=== PATIENT | female | born 1970 | race Caucasian/White ===

== ENCOUNTER 2016-08-21 08:03 | Emergency (ER) | payer BC, OTHER ==
[~2016-08-21] VITALS: Ht 157.5 cm; Wt 83.9 kg
[2016-08-21 08:20] VITALS: BP 151/95
[2016-08-21] MEDS ORDERED: KETOROLAC TROMETH 60MG/2ML VIAL IM ONE (09:30)
== END 2016-08-21 09:54 | disposition home or self-care (01) ==
LOC: ER 08:03
DX: S16.1XXA Strain of muscle, fascia and tendon at neck level, initial encounter (principal); S86.919A Strain of unspecified muscle(s) and tendon(s) at lower leg level, unspecified leg, initial encounter; M51.37 Other intervertebral disc degeneration, lumbosacral region; M50.30 Other cervical disc degeneration, unspecified cervical region; V49.49XA Driver injured in collision with other motor vehicles in traffic accident, initial encounter; Y93.89 Activity, other specified; Y99.8 Other external cause status; Y92.410 Unspecified street and highway as the place of occurrence of the external cause
CPT/HCPCS: 72040; 72220; 96372; 99284; J1885

== ENCOUNTER 2018-04-13 13:43 | Emergency (ER) | payer BC ==
[~2018-04-13] VITALS: Ht 157.5 cm; Wt 84.8 kg
[2018-04-13 14:28] VITALS: BP 127/79
== END 2018-04-13 16:18 | disposition home or self-care (01) ==
LOC: ER 13:43
DX: S86.912A Strain of unspecified muscle(s) and tendon(s) at lower leg level, left leg, initial encounter (principal); I10 Essential (primary) hypertension; X58.XXXA Exposure to other specified factors, initial encounter; Y93.89 Activity, other specified; Y99.8 Other external cause status; Y92.89 Other specified places as the place of occurrence of the external cause
CPT/HCPCS: 93971

== ENCOUNTER 2019-02-23 08:25 | Emergency (ER) | payer BC ==
[~2019-02-23] VITALS: Ht 157.5 cm; Wt 85.7 kg
[2019-02-23 09:10] LABS: Basophils # (auto) 0 uL; Basophils % (auto) 0.4 % (0.0-2.0); Eosinophils # (auto) 0.1 uL; Eosinophils % (auto) 1.2 % (0.0-7.0); Hematocrit 41.7 % (36.0-46.0); Hemoglobin 14.3 g/dL (12.2-16.2); Lymphocytes # (auto) 1.4 uL; Lymphocytes % (auto) 18.8 % (10.0-50.0); Mean Corpuscular Hemoglobin 32.1 pg (28.0-32.0); Mean Corpuscular Hgb Conc. 34.3 g/dL (32.0-36.0); Mean Corpuscular Volume 93.7 fL (80.0-100.0); Monocytes # (auto) 0.2 uL; Monocytes % (auto) 3.3 % (0.0-12.0); Neutrophils # (auto) 5.7 uL; Neutrophils % (auto) 76.3 % (37.0-80.0); Nucleated Red Blood Cells % 0.1 %; Platelet Count (auto) 327 10^3/uL (140-450); Red Blood Cells 4.45 10^6/uL (4.0-5.20); Red Cell Distribution Width 13.8 % (11.8-14.3); White Blood Cell 7.4 10^3/uL (4.4-10.8)
[2019-02-23 09:26] LABS: INR < 0.93 (0.9-1.15); Partial Thromboplastin Time 25.6 sec (23.64-32.05)
[2019-02-23 09:31] LABS: Albumin 3.8 g/dL (3.4-5.0); Anion Gap 4 (5-15); Aspartate Aminotransferase 21 U/L (15-37); BUN/Creatinine Ratio 17.3; Blood Urea Nitrogen 14 mg/dL (7-18); Calcium 8.8 mg/dL (8.5-10.1); Carbon Dioxide 26 mmol/L (21-32); Chloride 110 mmol/L (98-107); GFR African American 96 mL/min; GFR Non-African American 80 mL/min; Glucose 90 mg/dL (74-106); Potassium 4.2 mmol/L (3.5-5.1); Sodium 140 mmol/L (136-145)
[2019-02-23 09:36] LABS: Alanine Aminotransferase 36 U/L (13-56); Alkaline Phosphatase 135 U/L (45-117); Bilirubin, Total 0.3 mg/dL (0.2-1.0); Total Protein 7.3 g/dL (6.4-8.2)
[2019-02-23 09:50] LABS: Urine Bacteria NONE SEEN /hpf (None Seen); Urine Blood Negative /uL (Negative); Urine Specific Gravity 1.009 (1.001-1.035); Urine WBC 1 /hpf (0 - 5)
[2019-02-23] MEDS ORDERED: ASPirin 81 mg TAB PO ONE (10:15)
[2019-02-23 12:42] VITALS: BP 137/85
== END 2019-02-23 12:44 | disposition home or self-care (01) ==
LOC: ER 08:26
DX: F41.9 Anxiety disorder, unspecified (principal); R07.89 Other chest pain; I10 Essential (primary) hypertension
CPT/HCPCS: 36415; 71046; 80053; 81001; 84484; 85025; 85610; 85730; 93005; 94761

== ENCOUNTER 2022-12-10 09:36 | Emergency (ER) | payer BC, OTHER ==
[~2022-12-10] VITALS: Ht 157.5 cm; Wt 81.9 kg
[2022-12-10 10:28] VITALS: BP 139/73
[2022-12-10] MEDS ORDERED: ACETAMINOPHEN 500 MG TAB PO ONE (11:00)
[2022-12-10] MEDS ORDERED: METH-1182 PO (11:54)
[2022-12-10] MEDS ORDERED: IBUP-1456 PO (11:54)
== END 2022-12-10 11:56 | disposition home or self-care (01) ==
LOC: ER 09:36
DX: S16.1XXA Strain of muscle, fascia and tendon at neck level, initial encounter (principal); S00.83XA Contusion of other part of head, initial encounter; I10 Essential (primary) hypertension; V49.9XXA Car occupant (driver) (passenger) injured in unspecified traffic accident, initial encounter; Y93.89 Activity, other specified; Y92.410 Unspecified street and highway as the place of occurrence of the external cause; Y99.8 Other external cause status
CPT/HCPCS: 72040

== ENCOUNTER 2023-07-04 10:08 | Emergency (ER) | payer BC, OTHER ==
[~2023-07-04] VITALS: Ht 157.5 cm; Wt 81.9 kg
[~2023-07-04 10:08] MED LIST: IBUP-1456 PO; METH-1182 PO
[2023-07-04 11:15] VITALS: RESP 18; O2SAT 97
[2023-07-04] MEDS ORDERED: KETOROLAC TROMETH 60MG/2ML VIAL IM ONE (11:30)
[2023-07-04 11:46] VITALS: BP 151/94; PULSE 70; RESP 16; TEMP 97.4; O2SAT 97
[2023-07-04] MEDS ORDERED: METH-1182 PO (12:15)
== END 2023-07-04 12:21 | disposition home or self-care (01) ==
LOC: ER 10:08
DX: M54.41 Lumbago with sciatica, right side (principal); I10 Essential (primary) hypertension; Z98.890 Other specified postprocedural states; Z79.899 Other long term (current) drug therapy
CPT/HCPCS: 96372; 99283; J1885

== ENCOUNTER 2024-06-16 16:56 | Emergency (ER) | payer BC ==
[~2024-06-16] VITALS: Ht 157.5 cm; Wt 85.0 kg
[2024-06-16 18:15] LABS: Urine Bacteria None Seen /hpf (None Seen)
[2024-06-16] MEDS: KETOROLAC TROMETH 60MG/2ML VIAL IM ONE (18:29)
[2024-06-16 18:50] LABS: Urine Blood Negative /uL (Negative); Urine Clarity Clear (Clear); Urine Color Colorless (Yellow); Urine Protein, UAD Negative (Negative); Urine Specific Gravity 1.013 (1.001-1.035); Urine Squamous Epithelial Cell FEW /hpf (<5); Urine Urobilinogen Normal (Negative); Urine WBC 12 /hpf (0 - 5); Urine pH 5.5 (5.0-9.0)
[2024-06-16] MEDS ORDERED: NITR-87 PO (19:36)
[2024-06-16] MEDS ORDERED: IBUP-1455 PO (19:36)
--- NOTE | 2024-06-16 19:36 | ED.PDOC ---
General HPI Comments This patient is a pleasant but morbidly obese 54-year-old female who arrives to the ED today for evaluation of urinary discomfort as well as low back pain concerns for the past 10 days. Patient states the symptoms have abdomen flowed until the past few days where they has been relatively consistent. Patient denies any fever nausea or vomiting. Patient denies any history of kidney stones or low back concerns. Patient was mildly hypertensive on arrival. Chief Complaint: Urinary Time Seen by MD: 17:40 Primary Care Provider: CLIVE PIKE Reviewed notes: Nurses Notes Allergies: Coded Allergies: NO KNOWN ALLERGIES (Unverified , 08/21/16) Home Meds Active Scripts Methocarbamol (Methocarbamol) 750 Mg Tab, 1500 MG PO TID, #90 TAB Prov:LOLA FALLON PAC 07/04/23 Methocarbamol (Methocarbamol) 750 Mg Tab, 750 MG PO QHSP PRN, #20 TAB Prov:NARA CHEN 12/10/22 Ibuprofen (Ibuprofen) 800 Mg Tab, 1 TAB PO TID, #30 TAB Prov:NARA CHEN 12/10/22 Information Source: Patient Mode of Arrival: Ambulatory Severity: Moderate Timing: Days Duration: Intermittent Prehospital treatment: None Onset: Spontaneous Symptoms: Dysuria Location: Other (Low back) associated signs and symptoms: Back Pain Past Medical History PAST MEDICAL HISTORY: HTN Surgical History: MANUFACTURING ENGINEERING MANAGER History: No Pertinent MANUFACTURING ENGINEERING MANAGER History Family History Family History: Reviewed,noncontributory to illness Social History Smoker: Non-Smoker Alcohol: Denies ETOH Use Drugs: Denies Drug Use Lives In: Home Constitutional: denies: chills, diaphoresis, fatigue, fever, malaise, sweats, weakness, others EENTM: denies: blurred vision, double vision, ear bleeding, ear discharge, ear drainage, ear pain, ear ringing, eye pain, eye redness, hearing loss, mouth pain, mouth swelling, nasal discharge, nose bleeding, nose congestion, nose pain, photophobia, tearing, throat pain, throat swelling, voice changes, others Respiratory: denies: cough, hemoptysis, orthopnea, SOB at rest, shortness of breath, SOB with excertion, stridor, wheezing, others Cardiovascular: denies: chest pain, dizzy spells, diaphoresis, Dyspnea on exertion, edema, irregular heart beat, left arm pain, lightheadedness, palpitations, PND, syncope, others Gastrointestinal: denies: abdomen distended, abdominal pain, blood streaked bowels, constipated, diarrhea, dysphagia, difficulty swallowing, hematemesis, melena, nausea, poor appetite, poor fluid intake, rectal bleeding, rectal pain, vomiting, others Genitourinary: reports: dysuria; denies: abnormal vagina bleeding, burning, dyspareunia, flank pain, frequency, hematuria, incontinence, pain, , vagina discharge, urgency, others Neurological: denies: dizziness, fainting, headache, left sided numbness, left sided weakness, numbness, paresthesia, pre-existing deficit, right sided numbness, right sided weakness, seizure, speech problems, tingling, tremors, weakness, others Musculoskeletal: reports: back pain; denies: gout, joint pain, joint swelling, muscle pain, muscle stiffness, neck pain, others Integumetry: denies: bruises, change in color, change in hair/nails, dryness, laceration, lesions, lumps, rash, wounds, others Allergic/Immunocompromised: denies: Difficulty Healing, Frequent Infections, Hives, Itching, others Hematologic/Lymphatic: denies: anemia, blood clots, easy bleeding, easy bruising, swollen glands, others Endocrine: denies: excessive hunger, excessive sweating, excessive thirst, excessive urination, flushing, intolerance to cold, intolerance to heat, unexplained weight gain, unexplained weight loss, others Psychiatric: denies: anxiety, bipolar disorder, depression, hopeless, panic disorder, schizophrenia, sleepless, suicidal, others Physical Exam General Appearance: Moderate Distress (Patient presents [id number] uncomfortable due to her urinary and low back complaints.), Normal HEENT: Normal ENT Inspection, Pharynx Normal, TMs Normal Neck: Full Range of Motion, Non-Tender, Normal, Normal Inspection Respiratory: Chest Non-Tender, Lungs Clear, No Accessory Muscle Use, No R espiratory Distress, Normal Breath Sounds Cardiovascular: No Edema, No JVD, No Murmur, No Gallop, Normal Peripheral Pulses, Regular Rate/Rhythm Breast Exam: Deferred Gastrointestinal: No Organomegaly, Non Tender, No Pulsatile Mass, Normal Bowel Sounds, Soft Genitalia: Deferred Pelvic: Deferred Rectal: Deferred Extremities: No calf tenderness, Normal capillary refill, Normal inspection, Normal range of motion, Non-tender, No pedal edema Neurologic: Alert, No Motor Deficits, Normal Affect, Normal Mood, No Sensory Deficits Cerebellar Function: Normal Reflexes: Normal Skin: Dry, Normal Color, Warm Lymphatic: No Adenopathy Was a procedure done? Was a procedure done?: No Differential Diagnosis Kidney stone (Female): Other (UTI, low back strain) X-Ray, Labs, Meds, VS Vital Signs Date Time Temp Pulse Resp B/P (MAP) Pulse Ox O2 Delivery O2 Flow Rate FiO2 06/16/24 18:33 98.1 63 17 152/87 (108) 95 98.1 06/16/24 16:59 98.1 72 18 147/87 (107) 96 Lab Test 06/16/24 17:30 Range/Units Urine Color Colorless Yellow Urine Clarity Clear Clear Urine pH 5.5 5.0-9.0 Urine Specific [place] 1.013 1.001-1.035 Urine Protein Negative Negative Urine Ketones Negative Negative Urine Blood Negative Negative /uL Urine Nitrite Negative Negative Urine Bilirubin Negative Negative Urine Urobilinogen Normal Negative mg/dL Urine Leukocyte Esterase 2+ Negative /uL Urine RBC 3 0 - 4 /hpf Urine WBC 12 0 - 5 /hpf Urine Squamous Epithelial Cells Few <5 /hpf Urine Bacteria None seen None Seen /hpf Urine Glucose Normal Normal mg/dL Current Medications Medications (Trade) Dose Ordered Sig/Galdino Route Start Time Stop Time Status Last Admin Ketorolac Tromethamine (Toradol Injection) 30 mg ONCE ONCE IM 06/16/24 17:45 06/16/24 17:46 DC 06/16/24 18:29 X-Ray, Labs, Meds, VS Comment All studies performed the ED were evaluated by me personally. Urinalysis revealed a UTI. Patient was given her 1st dose of antibiotics prior to discharge. Advised patient utilize antibiotics as directed until completion as well as pain medication as needed. Advised good hydration throughout. Time of 1ST Reevaluation: 19:34 Reevaluation 1ST: Improved Consultation: PCP Patient Education/Counseling: Diagnosis, Treatment Family Education/Counseling: Diagnosis, Treatment Departure 1 Departure Time of Disposition: 19:34 Impression: Primary Impression: UTI (urinary tract infection) Disposition: HOME / SELF CARE / HOMELESS Condition: Stable Additional Instructions: Advised patient utilize antibiotics as directed until completion as well as additional medication as needed for pain relief. Advised good hydration throughout illness event. e-Prescriptions Ibuprofen Micronized (Ibuprofen) 800 Mg Tab 800 MG PO Q8HP PRN, #20 TAB Prov: TRISTIAN MARIN PAC 06/16/24 Nitrofurantoin Monohydrate Mac (Macrobid) 100 Mg Cap 100 MG PO BID for 5 Days, #10 CAP First dose to be taken on 06/17/2024. Prov: TRISTIAN MARIN PAC 06/16/24 Discharged With: Self, Friend Critical Care Note Critical Care Time?: No Stability Stability form required: No Heart Score Heart Score: Heart Score Response (Comments) Value History N/A 0 EKG N/A 0 Age N/A 0 Risk Factors N/A 0 Troponin N/A 0 Total 0 TRISTIAN MARIN PAC Jun 16, 2024 19:36
[2024-06-16] MEDS: NITROFURANTOIN 100 mg CAP PO ONE (20:04)
[2024-06-16 20:12] VITALS: BP 141/73; PULSE 64; RESP 16; TEMP 97.6; O2SAT 98
== END 2024-06-16 20:15 | disposition home or self-care (01) ==
LOC: ER 16:56
DX: N39.0 Urinary tract infection, site not specified (principal); I10 Essential (primary) hypertension; E66.01 Morbid (severe) obesity due to excess calories; Z79.899 Other long term (current) drug therapy
CPT/HCPCS: 81001; 96372; 99283; J1885

== ENCOUNTER 2024-11-02 09:35 | Emergency (ER) | payer BC ==
[~2024-11-02] VITALS: Ht 157.5 cm; Wt 84.8 kg
[~2024-11-02 09:35] MED LIST changes: +IBUP-1455 PO; +NITR-87 PO
[2024-11-02 10:32] LABS: Urine Bacteria None Seen /hpf (None Seen)
[2024-11-02 10:58] LABS: Urine Blood Negative /uL (Negative); Urine Clarity Clear (Clear); Urine Color Yellow (Yellow); Urine Mucus FEW (None Seen); Urine Protein, UAD Negative (Negative); Urine Specific Gravity 1.024 (1.001-1.035); Urine Squamous Epithelial Cell FEW /hpf (<5); Urine Urobilinogen Normal (Negative); Urine WBC 1 /HPF (0-5)
[2024-11-02] MEDS ORDERED: IBUP-1455 PO (11:58)
[2024-11-02] MEDS ORDERED: ACET500T58 PO (11:58)
--- NOTE | 2024-11-02 11:58 | ED.PDOC ---
Back pain HPI HPI Comments This is a 54 year old female presenting to the ED with chief complaint of lower back pain. Patient reports that she started to experience right sided lower back pain that radiates down her right leg since last night, worsening this morning. Patient has history of similar pain in the past and attributes it to sciatica. Pain worse with movement and lifting of her right leg. Patient took 800mg of Ibuprofen at 9pm last night with mild relief noted. Patient requests injection medication that she had received before for relief. Denies history of chronic steroid use or history of osteoporosis Denies any history of cancer Denies fevers chills night sweats nausea vomiting unintentional weight loss Denies IV drug use history of HIV/TB Denies abdominal "tearing" pain Denies syncope Denies urinary incontinence or urinary changes Denies numbness tingling of the groin or inner thigh Denies previous back procedure or surgery Chief Complaint: Back Pain Time Seen by MD: 10:00 Primary Care Provider: THOR Basilio Notes: Nurses Notes, Medications, Allergies Allergies: Coded Allergies: NO KNOWN ALLERGIES (Unverified , 08/21/16) Home Meds Active Scripts Acetaminophen (Acetaminophen) 500 Mg Tab, 500 MG PO Q6HP PRN for 7 Days, #28 TAB 0 Refills Prov:MILLICENT LOWERY ASSISTANT DRAFTER 11/02/24 Ibuprofen Micronized (Ibuprofen) 800 Mg Tab, 800 MG PO Q8HP PRN for 10 Days, #30 TAB 0 Refills Prov:MILLICENT LOWERY ASSISTANT DRAFTER 11/02/24 Ibuprofen Micronized (Ibuprofen) 800 Mg Tab, 800 MG PO Q8HP PRN, #20 TAB Prov:TRISTIAN MARIN PAC 06/16/24 Nitrofurantoin Monohydrate Mac (Macrobid) 100 Mg Cap, 100 MG PO BID for 5 Days, #10 CAP First dose to be taken on 06/17/2024. Prov:TRISTIAN MARIN PAC 06/16/24 Methocarbamol (Methocarbamol) 750 Mg Tab, 1500 MG PO TID, #90 TAB Prov:LOLA FALLON PAC 07/04/23 Methocarbamol (Methocarbamol) 750 Mg Tab, 750 MG PO QHSP PRN, #20 TAB Prov:NARA CHEN 12/10/22 Ibuprofen (Ibuprofen) 800 Mg Tab, 1 TAB PO TID, #30 TAB Prov:NARA CHEN 12/10/22 Information Source: Patient Mode of Arrival: Ambulatory Timing: Hours Duration: Since onset Location of Back pain: (R) Lower back Radiates to: Posterior: (R) Calf Severity: Moderate Prehospital treatment: None Quality: Aching Onset: Spontaneous History of: Chronic Back Pain Past Medical History PAST MEDICAL HISTORY: HTN Past Medical History (Other): Sciatica Surgical History: FEE CLERK History: No Pertinent FEE CLERK History Family History Family History: Reviewed,noncontributory to illness Social History Smoker: Non-Smoker Alcohol: Denies ETOH Use Drugs: Denies Drug Use Lives In: Home Constitutional: denies: chills, diaphoresis, fatigue, fever, malaise, sweats, weakness, others EENTM: denies: blurred vision, double vision, ear bleeding, ear discharge, ear drainage, ear pain, ear ringing, eye pain, eye redness, hearing loss, mouth pain, mouth swelling, nasal discharge, nose bleeding, nose congestion, nose pain, photophobia, tearing, throat pain, throat swelling, voice changes, others Respiratory: denies: cough, hemoptysis, orthopnea, SOB at rest, shortness of breath, SOB with excertion, stridor, wheezing, others Cardiovascular: denies: chest pain, dizzy spells, diaphoresis, Dyspnea on exertion, edema, irregular heart beat, left arm pain, lightheadedness, palpitations, PND, syncope, others Gastrointestinal: denies: abdomen distended, abdominal pain, blood streaked bowels, constipated, diarrhea, dysphagia, difficulty swallowing, hematemesis, melena, nausea, poor appetite, poor fluid intake, rectal bleeding, rectal pain, vomiting, others Genitourinary: denies: abnormal vagina bleeding, burning, dyspareunia, dysuria, flank pain, frequency, hematuria, incontinence, pain, , vagina discharge, urgency, others Neurological: denies: dizziness, fainting, headache, left sided numbness, left sided weakness, numbness, paresthesia, pre-existing deficit, right sided numbness, right sided weakness, seizure, speech problems, tingling, tremors, weakness, others Musculoskeletal: reports: back pain (Right lower back pain), others (Right leg pain); denies: gout, joint pain, joint swelling, muscle pain, muscle stiffness, neck pain Integumetry: denies: bruises, change in color, change in hair/nails, dryness, laceration, lesions, lumps, rash, wounds, others Allergic/Immunocompromised: denies: Difficulty Healing, Frequent Infections, Hives, Itching, others Hematologic/Lymphatic: denies: anemia, blood clots, easy bleeding, easy bruising, swollen glands, others Endocrine: denies: excessive hunger, excessive sweating, excessive thirst, excessive urination, flushing, intolerance to cold, intolerance to heat, unexplained weight gain, unexplained weight loss, others Psychiatric: denies: anxiety, bipolar disorder, depression, hopeless, panic disorder, schizophrenia, sleepless, suicidal, others All Other Systems: Reviewed and Negative Physical Exam General Appearance: No Apparent Distress, Normal HEENT: Normal ENT Inspection, Pharynx Normal, TMs Normal Neck: Full Range of Motion, Non-Tender, Normal, Normal Inspection Respiratory: Chest Non-Tender, Lungs Clear, No Accessory Muscle Use, No Respiratory Distress, Normal Breath Sounds Cardiovascular: No Edema, No JVD, No Murmur, No Gallop, Normal Peripheral Pulses, Regular Rate/Rhythm Breast Exam: Deferred Gastrointestinal: No Organomegaly, Non Tender, No Pulsatile Mass, Normal Bowel Sounds, Soft Genitalia: Deferred Pelvic: Deferred Rectal: Deferred Extremities: No calf tenderness, Normal capillary refill, Normal inspection, Normal range of motion, Non-tender, No pedal edema Musculoskeletal : Location: Right Apperance: Other (No gross abnormalities, no midline tenderness, localized right sided paraspinal lumbosacral TTP, + right straight leg raise test.) Neurologic: Alert, electronic funds transfer coordinator II-XII nml as Tested, No Motor Deficits, Normal Affect, Normal Mood, No Sensory Deficits, Other (Strength 5/5, neurovascular sensation intact) Cerebellar Function: Normal Reflexes: Normal Skin: Dry, Normal Color, Warm Lymphatic: No Adenopathy Was a procedure done? Was a procedure done?: No Back Pain Differential Dx Differential Diagnosis: Musculoskeletal Pain, Strain, Other X-Ray, Labs, Meds, VS Vital Signs Date Time Temp Pulse Resp B/P (MAP) Pulse Ox O2 Delivery O2 Flow Rate FiO2 11/02/24 12:37 98.3 72 16 146/93 (110) 97 98.3 11/02/24 11:23 98.2 78 18 143/84 (103) 96 98.2 11/02/24 11:23 78 18 96 Room Air 11/02/24 09:48 97.7 74 18 145/77 (99) 96 97.7 Lab Test 11/02/24 09:49 Range/Units Urine Color Yellow Yellow Urine Clarity Clear Clear Urine pH 6.0 5.0-9.0 Urine Specific [place] 1.024 1.001-1.035 Urine Protein Negative Negative Urine Ketones Negative Negative Urine Blood Negative Negative /uL Urine Nitrite Negative Negative Urine Bilirubin Negative Negative Urine Urobilinogen Normal Negative mg/dL Urine Leukocyte Esterase Negative Negative /uL Urine RBC 2 0 - 4 /hpf Urine Microscopic WBC 1 0-5 /HPF Urine Squamous Epithelial Cells Few <5 /hpf Urine Bacteria None seen None Seen /hpf Urine Mucus Few None Seen Urine Glucose Normal Normal mg/dL X-Ray, Labs, Meds, VS Comment This is a 54 year old female presenting to the ED with chief complaint of lower back pain. Patient arrives alert and oriented, ABC's intact, afebrile, vital signs stable, saturating well in room air Given patient's history and exam: Sciatica, cord compression, cauda equina, aortic dissection, Guillain-Toledo syndrome, epidural hematoma/abscess were all considered. Patient not toxic or ill-appearing. Vital signs within acceptable limits. Positive straight leg raise on exam with tenderness to the buttock consistent with sciatica. No vertebral point tenderness noted over the T or L-spine. No paraspinal muscle tenderness noted. No fever or IV drug use the. The differential for an acute vascular, neurologic, malignant, or infectious etiologies is much less likely given his/her presentation. The patient does not warrant a radiological exam at this time. Patient was given: Toradol 60mg IM and Solu-Medrol 125mg IM. Tolerated medications with no adverse reaction. Advised patient to try to take alternating Ibuprofen and Tylenol to help with inflammation of the sciatic nerve and surrounding tissues and should try to do low back stretches but also try to rest and avoid excessive sitting and bending. On reassessment, the patient's symptoms improved, and patient was able to ambulate without assistive devices. The patient will f/u with PMD to see if his/her symptoms fela. An MRI may need to be ordered if the symptoms worsen or do not improve over time. The patient was counseled in regard to the diagnosis and management of the condition and verbalized understanding of this. The patient understands to return to the ER or seek immediate medical attention if the symptoms worsen or return. Labs were ordered. Urinalysis was ordered to rule out UTI or hematuria. Negative UA Additional MDM Review of External, Non-ED records: External records reviewed. History obtained from the patient/parents (if applicable) at bedside Chronic conditions affecting care: Sciatica, HTN Social determinants of health affecting care: None Consideration of admission (observation or admission): I considered escalation of care to admission for this patient, however given the reassuring workup, the patient is safe for outpatient management. Discussion with the Radiology: No Tests considered but not performed: None Prescription medication considered but not given: None Time of 1ST Reevaluation: 12:15 Reevaluation 1ST: Improved Patient Education/Counseling: Diagnosis, Treatment Family Education/Counseling: No Family Present Departure 1 Departure Time of Disposition: 12:16 Impression: Primary Impression: Lumbar radiculopathy Disposition: HOME / SELF CARE / HOMELESS Condition: Fair e-Prescriptions Acetaminophen (Acetaminophen) 500 Mg Tab 500 MG PO Q6HP PRN for 7 Days, #28 TAB 0 Refills Prov: MILLICENT LOWERY ASSISTANT DRAFTER 11/02/24 Ibuprofen Micronized (Ibuprofen) 800 Mg Tab 800 MG PO Q8HP PRN for 10 Days, #30 TAB 0 Refills Prov: MILLICENT LOWERY ASSISTANT DRAFTER 11/02/24 Critical Care Note Critical Care Time?: No Stability Stability form required: No Heart Score Heart Score: Heart Score Response (Comments) Value History N/A 0 EKG N/A 0 Age N/A 0 Risk Factors N/A 0 Troponin N/A 0 Total 0 I personally scribed for MILLICENT LOWERY ASSISTANT DRAFTER ([email or web address]) on 11/02/24 at 12:03. Electronically submitted by Dante Anderson ([email or web address]). I personally scribed for MILLICENT LOWERY ASSISTANT DRAFTER ([email or web address]) on 11/02/24 at 12:11. Electronically submitted by Dante Anderson ([email or web address]). MILLICENT LOWERY ASSISTANT DRAFTER November 02, 2024 11:58
[2024-11-02 12:37] VITALS: BP 146/93; PULSE 72; RESP 16; TEMP 98.3; O2SAT 97
[2024-11-02] MEDS: methylPREDNISolone SOD SUCC 125 MG/2 ML VL IM ONE (12:42)
[2024-11-02] MEDS: KETOROLAC TROMETH 60MG/2ML VIAL IM ONE (12:43)
== END 2024-11-02 13:02 | disposition home or self-care (01) ==
LOC: ER 09:35
DX: M54.16 Radiculopathy, lumbar region (principal); I10 Essential (primary) hypertension; Z98.890 Other specified postprocedural states; Z79.1 Long term (current) use of non-steroidal anti-inflammatories (NSAID); Z79.899 Other long term (current) drug therapy
CPT/HCPCS: 81001; 96372; 99284; J1885; J2919